=== PATIENT | female | born 1930 | race Caucasian/White ===

== ENCOUNTER 2017-05-14 07:46 | Outpatient (CLI) | payer MEDICARE, BC | END 2017-05-14 07:47 | disposition EMS.NT | LOC: EMS 07:46 | PROVIDERS: ATTEND Surgery | DX: Z03.89 Encounter for observation for other suspected diseases and conditions ruled out (principal); W18.39XA Other fall on same level, initial encounter; Y92.009 Unspecified place in unspecified non-institutional (private) residence as the place of occurrence of the external cause ==

== ENCOUNTER 2017-06-14 08:00 | Outpatient (CLI) | payer MEDICARE, BC ==
[2017-06-14 16:38] LABS: BASOPHILS # (AUTO) 0.1 10^3/uL (0.0-0.1); BASOPHILS % (AUTO) 0.9 %; EOSINOPHILS # (AUTO) 0.3 10^3/uL (0.0-0.7); EOSINOPHILS % (AUTO) 4.9 %; HGB - HEMOGLOBIN 14.4 g/dL (12.0-16.0); LYMPHOCYTES # (AUTO) 2.1 10^3/uL (1.5-3.5); LYMPHOCYTES % (AUTO) 30.6 %; MEAN CORPUSCULAR HEMOGLOBIN 32.1 pg (27.0-31.0); MEAN CORPUSCULAR HGB CONC 33.5 g/dL (32.0-36.0); MEAN CORPUSCULAR VOLUME 95.8 fL (81.0-99.0); MONOCYTES # (AUTO) 0.7 10^3/uL (0.0-1.0); MONOCYTES % (AUTO) 10.4 %; NEUTROPHILS # (AUTO) 3.6 10^3/uL (1.5-6.6); NEUTROPHILS % (AUTO) 53.2 %; NUCLEATED RED BLOOD CELLS AUTO 0.1 /100WBC; RED BLOOD COUNT 4.49 10^6/uL (4.20-5.40); RED CELL DISTRIBUTION WIDTH 13.2 % (12.0-15.0); UNCORRECTED WHITE BLOOD COUNT 6.7 x10^3/uL; WHITE BLOOD COUNT 6.7 x10^3/uL (4.8-10.8)
[2017-06-14 16:57] LABS: ALBUMIN/GLOBULIN RATIO 1.2 (1.0-2.2); BILIRUBIN,TOTAL 0.7 mg/dL (0.2-1.0); BUN - BLOOD UREA NITROGEN 18 mg/dL (6-20); CALCIUM 9.7 mg/dL (8.5-10.3); CARBON DIOXIDE - CO2 26 mmol/L (21-32); CHLORIDE 106 mmol/L (101-111); CHOL/HDL RATIO 2.9 (<4.4); CHOLESTEROL 100 mg/dL; CREATININE 0.8 mg/dL (0.4-1.0); GFR - MDRD 68 (>89); GLUCOSE 103 mg/dL (70-100); HDL CHOLESTEROL 34 mg/dL; LDL/HDL RATIO 1.3 (<4.4); POTASSIUM 4.6 mmol/L (3.5-5.0); SODIUM 138 mmol/L (135-145); TOTAL PROTEIN 7.3 g/dL (6.7-8.2); TRIGLYCERIDES 104 mg/dL; VLDL CHOLESTEROL 21 mg/dL
== END 2017-06-14 08:01 | disposition home or self-care (01) ==
LOC: LAB.R 08:00
PROVIDERS: ATTEND Nurse Practitioner Primary Care
DX: Z79.899 Other long term (current) drug therapy (principal); R73.9 Hyperglycemia, unspecified; I10 Essential (primary) hypertension; E78.2 Mixed hyperlipidemia; I44.7 Left bundle-branch block, unspecified
CPT/HCPCS: 80053; 80061; 84443; 85025

== ENCOUNTER 2018-04-03 12:27 | Emergency (ER) | payer MEDICARE, BC ==
[2018-04-03 12:43] VITALS: BP 130/56
--- NOTE | 2018-04-03 14:05 | XRAY Report ---
Procedure Date: 04/03/2018 Accession Number: [id number] / [id number] Procedure: XR - Toe(s) LT CPT Code: FULL RESULT: EXAM: LEFT THIRD TOE RADIOGRAPHY EXAM DATE: 04/03/2018 01:20 PM. CLINICAL HISTORY: Left 3rd toe pain. COMPARISON: None. TECHNIQUE: 3 views. FINDINGS: Bones: Cortical stepoff and lucency at the distal one-third of the left third proximal phalanx is compatible with a mildly displaced fracture. Patient is osteopenic. Remaining osseous structures are intact. Joints: Moderate first MTP joint space narrowing. No subluxation. Soft Tissues: Moderate left third toe soft tissue swelling noted. No radiopaque foreign bodies are noted. IMPRESSION: 1. Mildly displaced transverse acute fracture in the distal one-third of the left third proximal phalanx. 2. No dislocation. 3. Moderate third toe swelling. RADIA
--- NOTE | 2018-04-03 14:29 | ED Physician Documentation ---
History of Present Illness - Stated complaint Stated Complaint: TOE PX - Chief complaint Chief Complaint: Ext Problem - History obtained from History obtained from: Patient - History of Present Illness Timing: Last night Pain level max: 8 Pain level now: 5 Improved by: rest Worsened by: walking - Additonal information Additional information: 88 year old female with L 3rd toe injury. accidentally kicked a piece of furniture while trying to help her . Review of Systems Neurologic: denies: Focal weakness, Numbness PD PAST MEDICAL HISTORY - Past Medical History Cardiovascular: Hypertension Respiratory: None Endocrine/Autoimmune: None GI: Ulcers : None, Incontinence, Kidney stones HEENT: Macular degeneration, Other Psych: None Musculoskeletal: Osteoarthritis Derm: None - Past Surgical History Past Surgical History: Yes Ortho: Knee replacement /RAMP LEAD: Tubal ligation, Hysterectomy HEENT: Cataracts Derm: Skin cancer surgery - Present Medications Home Medications: Ambulatory Orders Medication Instructions Recorded Confirmed Amlodipine Besylate 2.5 mg pe PO BID 04/18/13 05/26/15 Cholecalciferol (Vitamin D3) 5,000 units PO DAILY 04/18/13 05/26/15 [Vitamin D-3] Estrogens, Conjugated [Premarin] 0.3 04/18/13 05/26/15 Furosemide [Lasix] 20 mg PO DAILY 04/18/13 05/26/15 Glucosamine Sulfate Dipot Chlr 1,500 mg PO DAILY 04/18/13 05/26/15 [Glucosamine] Nadolol [Corgard] 20 mg PO BID 04/18/13 05/26/15 Potassium Chloride [K-Dur] 20 meq PO DAILY 04/18/13 05/26/15 Telmisartan [Micardis] 40 tab PO BID 04/18/13 05/26/15 Vit A,C & E/Lutein/Minerals 1 tab PO DAILY 04/18/13 05/26/15 [Ocuvite Tablet] Meclizine [Antivert] 25 mg PO Q6H PRN #20 tablet 09/13/13 05/26/15 Atorvastatin [Lipitor] 40 mg PO DAILY 05/26/15 05/26/15 Ondansetron Odt [Zofran] 4 mg TL Q6H PRN #10 tablet 05/27/15 oxyCODONE/ACET 5/325 [Percocet 5 1 each PO Q4-6H PRN #20 tablet 05/27/15 mg/325 mg] - Allergies Allergies/Adverse Reactions: Allergies Allergy/AdvReac Type Severity Reaction Status Date / Time Penicillins Allergy Mild Rash Verified 04/03/18 12:43 sulfamethoxazole Allergy Unknown unk Verified 04/03/18 12:43 [From ] trimethoprim [From ] Allergy Unknown unk Verified 04/03/18 12:43 - Social History Does the pt smoke?: No Smoking Status: Never smoker Does the pt drink ETOH?: No Does the pt have substance abuse?: No - POLST Patient has POLST: No PD ED PE NORMAL - Vitals Vital signs reviewed: Yes - General General: Alert and oriented X 3 - Derm Derm: Warm and dry - Extremities Extremities: Other (L 3rd toe - Mild ecchymosis and swelling. Neurovascularly intact. Otherwise normal examination of the foot) - Neuro Neuro: Alert and oriented X 3 Results - Vitals Vitals: Vital Signs - 24 hr 04/03/18 12:38 Temperature 36.4 C L Heart Rate 60 Respiratory 20 Rate Blood Pressure 130/56 L O2 Saturation 95 Oxygen O2 Source Room air - Rads (name of study) L foot xray Radiology: Prelim report reviewed, EMP read contemporaneously, See rad report ( Mildly displaced transverse acute fracture in the distal one-third of the left third proximal phalanx. No dislocation. Moderate third toe swelling. ) PD MEDICAL DECISION MAKING - ED course Complexity details: reviewed results, re-evaluated patient, considered differential, d/w patient ED course: Patient is an 88-year-old female who presents with a left third toe fracture. The toe was mohsen taped and placed in a postoperative shoe. Patient declines any pain meds here for home. No nail injury. No subungual hematoma. Patient counseled regarding signs and symptoms for which I believe and urgent re- evaluation would be necessary. Patient with good understanding of and agreement to plan and is comfortable going home at this time This document was made in part using voice recognition software. While efforts are made to proofread this document, sound alike and grammatical errors may occur. - Sepsis Event Vital Signs: Vital Signs - 24 hr 04/03/18 12:38 Temperature 36.4 C L Heart Rate 60 Respiratory 20 Rate Blood Pressure 130/56 L O2 Saturation 95 Oxygen O2 Source Room air Departure - Departure Disposition: 01 Home, Self Care Clinical Impression: Toe fracture, left Qualifiers: Encounter type: initial encounter Toe: lesser toe Fracture type: closed Phalanx : proximal Fracture alignment: displaced Qualified Code(s): S92.512A - Displaced fracture of proximal phalanx of left lesser toe(s), initial encounter for closed fracture Condition: Good Instructions: ED Fx Toe Closed Follow-Up: Estrella Travis PA-C [Primary Care Provider] - Within 1 week Comments: Return if you worsen. Wear the post op shoe for comfort. May take several weeks to heal. Discharge Date/Time: 04/03/18 15:03
== END 2018-04-03 15:03 | disposition home or self-care (01) ==
LOC: ED 12:27
DX: S92.512A Displaced fracture of proximal phalanx of left lesser toe(s), initial encounter for closed fracture (principal); I10 Essential (primary) hypertension; W22.8XXA Striking against or struck by other objects, initial encounter
CPT/HCPCS: 73660; 99282; 99283

== ENCOUNTER 2018-04-09 12:11 | Outpatient (CLI) | payer MEDICARE, BC ==
[2018-04-09 13:28] LABS: BASOPHILS # (AUTO) 0.1 10^3/uL (0.0-0.1); BASOPHILS % (AUTO) 1.1 %; EOSINOPHILS # (AUTO) 0.2 10^3/uL (0.0-0.7); EOSINOPHILS % (AUTO) 3.1 %; HGB - HEMOGLOBIN 13.4 g/dL (12.0-16.0); LYMPHOCYTES # (AUTO) 1.9 10^3/uL (1.5-3.5); LYMPHOCYTES % (AUTO) 27.2 %; MEAN CORPUSCULAR HEMOGLOBIN 32.7 pg (27.0-31.0); MEAN CORPUSCULAR HGB CONC 34.2 g/dL (32.0-36.0); MEAN CORPUSCULAR VOLUME 95.5 fL (81.0-99.0); MONOCYTES # (AUTO) 0.7 10^3/uL (0.0-1.0); MONOCYTES % (AUTO) 9.5 %; NEUTROPHILS # (AUTO) 4.2 10^3/uL (1.5-6.6); NEUTROPHILS % (AUTO) 59.1 %; PLT - PLATELET COUNT 211 10^3/uL (130-450)
[2018-04-09 13:39] LABS: ALBUMIN 3.9 g/dL (3.2-5.5); ALBUMIN/GLOBULIN RATIO 1.1 (1.0-2.2); BILIRUBIN,TOTAL 1.2 mg/dL (0.2-1.0); CALCIUM 9.8 mg/dL (8.5-10.3); TOTAL PROTEIN 7.3 g/dL (6.7-8.2)
[2018-04-09 13:41] LABS: HB2 TOTAL 14.4 g/dL; HEMOGLOBIN A1C 0.56 g/dL; HEMOGLOBIN A1C % 5.7 % (4.6-6.2)
[2018-04-09 13:58] LABS: THYROID STIMULATING HORMONE 1.2 uIU/mL (0.34-5.60)
[2018-04-09 16:10] LABS: RHEUMATOID FACTOR NEGATIVE (Negative)
[2018-04-11 15:03] LABS: ANA SCREEN NEGATIVE (NEGATIVE)
[2018-04-11 23:06] LABS: ALBUMIN 3.8 g/dL (3.8-4.8); ALPHA 1 GLOBULIN 0.3 g/dL (0.2-0.3); ALPHA 2 GLOBULIN 0.8 g/dL (0.5-0.9); BETA 1 GLOBULIN 0.5 g/dL (0.4-0.6); BETA 2 GLOBULIN 0.5 g/dL (0.2-0.5); GAMMA GLOBULIN 1.2 g/dL (0.8-1.7)
== END 2018-04-09 12:12 | disposition home or self-care (01) ==
LOC: LAB.R 12:11
PROVIDERS: ATTEND Physician Assistant Medical
DX: R20.8 Other disturbances of skin sensation (principal); Z79.899 Other long term (current) drug therapy
CPT/HCPCS: 80053; 81599; 82306; 82607; 83036; 84155; 84165; 84207; 84425; 84443; 85025; 85651; 86038; 86334; 86430

== ENCOUNTER 2018-04-10 08:00 | Outpatient (CLI) | payer MEDICARE, BC | END 2018-04-10 08:01 | disposition home or self-care (01) | LOC: LAB.R 08:00 | PROVIDERS: ATTEND Internal Medicine | DX: R20.8 Other disturbances of skin sensation (principal) | CPT/HCPCS: 81599; 82570; 84156; 84166 ==

== ENCOUNTER 2018-07-06 08:13 | Outpatient (CLI) | payer MEDICARE, BC ==
[2018-07-06 08:24] LABS: BASOPHILS # (AUTO) 0.1 10^3/uL (0.0-0.1); BASOPHILS % (AUTO) 1.1 %; EOSINOPHILS # (AUTO) 0.3 10^3/uL (0.0-0.7); EOSINOPHILS % (AUTO) 4.1 %; HGB - HEMOGLOBIN 13.9 g/dL (12.0-16.0); LYMPHOCYTES # (AUTO) 2.5 10^3/uL (1.5-3.5); LYMPHOCYTES % (AUTO) 31.8 %; MEAN CORPUSCULAR HEMOGLOBIN 32.6 pg (27.0-31.0); MEAN CORPUSCULAR VOLUME 95.8 fL (81.0-99.0); MEAN PLATELET VOLUME 7.9 fL (7.9-10.8); MONOCYTES # (AUTO) 0.7 10^3/uL (0.0-1.0); MONOCYTES % (AUTO) 9.6 %; NEUTROPHILS # (AUTO) 4.2 10^3/uL (1.5-6.6); NEUTROPHILS % (AUTO) 53.4 %; PLT - PLATELET COUNT 210 10^3/uL (130-450); RED BLOOD COUNT 4.28 10^6/uL (4.20-5.40); RED CELL DISTRIBUTION WIDTH 13.1 % (12.0-15.0); WHITE BLOOD COUNT 7.8 x10^3/uL (4.8-10.8)
[2018-07-06 08:41] LABS: CHOL/HDL RATIO 2.6 (<4.4); CHOLESTEROL 103 mg/dL; HDL CHOLESTEROL 40 mg/dL; LDL CHOLESTEROL,CALCULATED 48 mg/dL; LDL/HDL RATIO 1.2 (<4.4); VLDL CHOLESTEROL 15 mg/dL
== END 2018-07-06 08:14 | disposition home or self-care (01) ==
LOC: LAB 08:13
PROVIDERS: ATTEND Physician Assistant Medical
DX: E78.2 Mixed hyperlipidemia (principal); Z79.899 Other long term (current) drug therapy
CPT/HCPCS: 36415; 80061; 83721; 85025

== ENCOUNTER 2018-09-27 09:26 | Outpatient (CLI) | payer MEDICARE, BC ==
--- NOTE | 2018-09-27 14:38 | MRI Report ---
Reason: HAND WEAKNESS Procedure Date: 09/27/2018 Accession Number: [id number] / [id number] Procedure: MRI - Cervical Spine W/O CPT Code: FULL RESULT: EXAM: MRI CERVICAL SPINE WITHOUT CONTRAST EXAM DATE: 09/27/2018 10:00 AM. CLINICAL HISTORY: HAND WEAKNESS. COMPARISONS: MRA brain 09/27/2013. MRI brain 09/13/2013. TECHNIQUE: Multiplanar, multisequence T1-weighted and fluid-sensitive sequences of the cervical spine without contrast. Other: None. FINDINGS: There is motion degradation on the examination. Reversal of the normal cervical lordosis is seen centered over C4. Posterior longitude ligament hypertrophy is seen at C5 and C6. Buckling of ligamentum flavum is seen at C2-C3 and from C5 through T1. Grade 1 anterolisthesis of C7 relative to T1 is noted. Grade 1 retrolisthesis of C3 relative to C4 and C6 relative to C7 is noted. Grade 1 anterolisthesis of C4 relative to C5 is noted. Moderate to severe loss of disk space height is seen from C3 through C5. Severe loss of disk space height is seen at C5 through C7. Anterior disk protrusion osteophyte formation are seen from C3 through T1. Subtle T2 hyperintense signal in the cervical spinal cord at the level of the C5-C6 disk space is not excluded. C2-C3: No posterior disk protrusion. C3-C4: A mild posterior disk protrusion is seen. Disk/osteophyte complex formation is seen involving the posterior lateral margin of the disk bilaterally. Bilateral uncovertebral joint spurring is seen. Severe left foraminal stenosis. Central canal is borderline. C4-C5: A mild posterior disk protrusion is seen. Disk/osteophyte complex formation is seen involving the posterior lateral margin of the disk bilaterally. Central canal is borderline. Bilateral uncovertebral joint spurring results in severe bilateral foraminal stenosis. There is flattening of the ventral cervical spinal cord. C5-C6: A moderate posterior disk protrusion is seen. There is mass-effect on the ventral thecal sac greatest in the midline and to the left of midline. Central canal measures 6 mm. Disk/osteophyte complex formation is seen involving the posterior lateral margin of the disk bilaterally and there is bilateral uncovertebral joint spurring with severe bilateral foraminal stenosis. C6-C7: A mild posterior disk protrusion is seen. Disk/osteophyte complex is seen involving the posterior lateral margin of the disk bilaterally. There is bilateral uncovertebral joint spurring. Severe bilateral foraminal stenosis is seen. Flattening of the ventral cervical spinal cord is seen. Central canal measures 6-7 mm. C7-T1: A very mild posterior disk protrusion is seen. Bilateral foraminal narrowing is present. Central canal is borderline. T1-T2, T2-T3, and T3-T4: Posterior disk protrusions are seen on the sagittal views without central canal stenosis present. Facet hypertrophy is seen predominantly in the mid and upper cervical spine on the left. IMPRESSION: 1. Degenerative disk disease, uncovertebral joint spurring, osteophyte formation, and facet hypertrophy are present at multiple levels and are discussed above. 2. There is moderate central canal stenosis at C5-C6 and at C6-C7. There is significant mass-effect on the ventral cervical spinal cord at these levels. 3. Multilevel severe foraminal stenosis is present. This is seen bilaterally from C4 through C7 and on the left at C3-C4. 4. Suspect subtle cord signal at the level of the C5-C6 disk space suggesting subtle myelomalacia. 5. Multilevel spondylolisthesis is present. RADIA
== END 2018-09-27 09:27 | disposition home or self-care (01) ==
LOC: DI 09:26
PROVIDERS: ATTEND Psychiatry & Neurology Neurology
DX: M50.21 Other cervical disc displacement, high cervical region (principal); M51.24 Other intervertebral disc displacement, thoracic region; M48.02 Spinal stenosis, cervical region; M43.12 Spondylolisthesis, cervical region; M47.9 Spondylosis, unspecified
CPT/HCPCS: 72141

== ENCOUNTER 2019-03-25 12:18 | Outpatient (CLI) | payer MEDICARE, BC ==
--- NOTE | 2019-03-26 00:57 | XRAY Report ---
Reason: WHEEZING Procedure Date: 03/25/2019 Accession Number: [id number] / [id number] Procedure: XR - Chest 2 View X-Ray CPT Code: 51934 FULL RESULT: EXAM: CHEST RADIOGRAPHY EXAM DATE: 03/25/2019 12:50 PM. CLINICAL HISTORY: WHEEZING. Cough. COMPARISON: 04/18/2013 10:20 PM. TECHNIQUE: 2 views. FINDINGS: Lungs/Pleura: Mild bibasilar and right midlung linear opacities, suspect atelectasis, new. No consolidation, pleural effusion or pneumothorax. Mediastinum: Heart and mediastinal contours are unremarkable. Other: Marked aortic arch calcification. Severe bilateral glenohumeral degenerative joint disease, right worse than left. IMPRESSION: Mild bibasilar and right midlung linear opacities, suspect atelectasis, new. No consolidation, pleural effusion or pneumothorax. RADIA
== END 2019-03-25 12:19 | disposition home or self-care (01) ==
LOC: DI 12:18
PROVIDERS: ATTEND Family Medicine
DX: R91.8 Other nonspecific abnormal finding of lung field (principal)
CPT/HCPCS: 71046

== ENCOUNTER 2019-04-05 08:57 | Outpatient (CLI) | payer MEDICARE, BC ==
[2019-04-05 09:17] LABS: BASOPHILS # (AUTO) 0.1 10^3/uL (0.0-0.1); EOSINOPHILS # (AUTO) 0.7 10^3/uL (0.0-0.7); EOSINOPHILS % (AUTO) 7.4 %; HGB - HEMOGLOBIN 14.8 g/dL (12.0-16.0); LYMPHOCYTES # (AUTO) 2.7 10^3/uL (1.5-3.5); LYMPHOCYTES % (AUTO) 30.3 %; MEAN CORPUSCULAR HEMOGLOBIN 32.1 pg (27.0-31.0); MEAN CORPUSCULAR HGB CONC 32.7 g/dL (32.0-36.0); MEAN PLATELET VOLUME 10.1 fL (7.9-10.8); MONOCYTES # (AUTO) 0.9 10^3/uL (0.0-1.0); MONOCYTES % (AUTO) 10.1 %; NEUTROPHILS # (AUTO) 4.5 10^3/uL (1.5-6.6); NEUTROPHILS % (AUTO) 50.7 %; PLT - PLATELET COUNT 241 10^3/uL (130-450); RED BLOOD COUNT 4.61 10^6/uL (4.20-5.40); RED CELL DISTRIBUTION WIDTH 12.6 % (12.0-15.0); WHITE BLOOD COUNT 8.9 x10^3/uL (4.8-10.8)
[2019-04-05 09:22] LABS: CALCIUM 9.8 mg/dL (8.5-10.3); CREATININE 0.9 mg/dL (0.4-1.0)
[2019-04-05 10:45] LABS: THYROID STIMULATING HORMONE 2.43 uIU/mL (0.34-5.60)
[2019-04-05 10:46] LABS: FREE T4 (FREE THYROXINE) 1.13 ng/dL (0.58-1.64)
== END 2019-04-05 08:58 | disposition home or self-care (01) ==
LOC: LAB 08:57
PROVIDERS: ATTEND Family Medicine
DX: I10 Essential (primary) hypertension (principal); J32.9 Chronic sinusitis, unspecified; R06.2 Wheezing
CPT/HCPCS: 36415; 80048; 83880; 84439; 84443; 84481; 85025

== ENCOUNTER 2019-06-14 10:38 | Outpatient (CLI) | payer MEDICARE, BC ==
--- NOTE | 2019-06-15 14:43 | XRAY Report ---
Reason: [id number] Procedure Date: 06/14/2019 Accession Number: [id number] / [id number] Procedure: XR - Shoulder 2 View BILAT CPT Code: Final Report FULL RESULT: EXAM: BILATERAL SHOULDER RADIOGRAPHY EXAM DATE: 06/14/2019 11:06 AM. CLINICAL HISTORY: [id number]. COMPARISON: CHEST 2 VIEW 03/25/2019 12:37 PM. TECHNIQUE: 2 views each bilateral shoulder (4 views total). FINDINGS: Bones: No fractures or bone lesions. Bones appear osteopenic. Joints: There is advanced glenohumeral joint DJD, right greater than left. Soft Tissues: Unremarkable. IMPRESSION: 1. No definite acute osseous abnormality. 2. Advanced glenohumeral joint DJD, right greater than left. RADIA
--- NOTE | 2019-06-15 14:45 | XRAY Report ---
Reason: SPINAL STENOSI,LUMBAR,SHOULDER PX,LT GREAT THAN RT Procedure Date: 06/14/2019 Accession Number: [id number] / [id number] Procedure: XR - Lumbar Spine 2 View CPT Code: Final Report FULL RESULT: EXAM: LUMBOSACRAL SPINE RADIOGRAPHY EXAM DATE: 06/14/2019 11:09 AM. CLINICAL HISTORY: Spinal stenosis, pain COMPARISONS: ABDOMEN/PELVIS W/O 05/26/2015 10:16 PM. TECHNIQUE: 2 views. FINDINGS: Alignment: There is grade 1 anterolisthesis of L3 on L4 and grade 2 anterolisthesis of L4 on L5. There is mild retrolisthesis of L2 on L3. Alignment is similar to prior CT of 2015. Bones: Diffuse osteopenia. No fractures or bone lesions. Postsurgical changes from left hip arthroplasty. Disks: Moderate multilevel degenerative changes are present from L2-S1. Facets: Facet arthropathy throughout the lumbar spine. Sacroiliac Joints: Unremarkable. Soft Tissues: Atherosclerotic vascular calcifications in the aorta. IMPRESSION: Multilevel degenerative changes, with alignment similar to a prior CT of 2014. RADIA
== END 2019-06-14 10:39 | disposition home or self-care (01) ==
LOC: DI 10:38
PROVIDERS: ATTEND Family Medicine
DX: M51.36 Other intervertebral disc degeneration, lumbar region (principal); M51.37 Other intervertebral disc degeneration, lumbosacral region; M47.816 Spondylosis without myelopathy or radiculopathy, lumbar region; M43.16 Spondylolisthesis, lumbar region; M19.011 Primary osteoarthritis, right shoulder; M19.012 Primary osteoarthritis, left shoulder
CPT/HCPCS: 72100

== ENCOUNTER 2019-10-31 09:07 | Outpatient (CLI) | payer MEDICARE, BC ==
[2019-10-31 09:42] LABS: BASOPHILS # (AUTO) 0.1 10^3/uL (0.0-0.1); EOSINOPHILS # (AUTO) 0.4 10^3/uL (0.0-0.7); EOSINOPHILS % (AUTO) 6.3 %; HGB - HEMOGLOBIN 14.8 g/dL (12.0-16.0); LYMPHOCYTES % (AUTO) 28.7 %; MEAN CORPUSCULAR HEMOGLOBIN 32.5 pg (27.0-31.0); MEAN CORPUSCULAR VOLUME 98.5 fL (81.0-99.0); MEAN PLATELET VOLUME 10.3 fL (7.9-10.8); MONOCYTES # (AUTO) 0.8 10^3/uL (0.0-1.0); MONOCYTES % (AUTO) 11.4 %; NEUTROPHILS # (AUTO) 3.7 10^3/uL (1.5-6.6); PLT - PLATELET COUNT 224 10^3/uL (130-450); RED BLOOD COUNT 4.56 10^6/uL (4.20-5.40); RED CELL DISTRIBUTION WIDTH 12.6 % (12.0-15.0)
[2019-10-31 10:02] LABS: ALBUMIN 3.9 g/dL (3.2-5.5); ALBUMIN/GLOBULIN RATIO 1.1 (1.0-2.2); ALKALINE PHOSPHATASE 80 IU/L (42-121); ALT ALANINE AMINOTRANSFERASE 40 IU/L (10-60); AST ASPARTATE AMINOTRANSFERASE 29 IU/L (10-42); BILIRUBIN,TOTAL 0.9 mg/dL (0.2-1.0); BUN - BLOOD UREA NITROGEN 15 mg/dL (6-20); CALCIUM 9.5 mg/dL (8.5-10.3); CARBON DIOXIDE - CO2 25 mmol/L (21-32); CHLORIDE 105 mmol/L (101-111); CHOLESTEROL 96 mg/dL; CREATININE 0.8 mg/dL (0.4-1.0); GFR - MDRD 68 (>89); GLUCOSE 115 mg/dL (70-100); HDL CHOLESTEROL 32 mg/dL; LDL CHOLESTEROL,CALCULATED 43 mg/dL; LDL/HDL RATIO 1.3 (<4.4); SODIUM 136 mmol/L (135-145); TOTAL PROTEIN 7.3 g/dL (6.7-8.2); VLDL CHOLESTEROL 21 mg/dL
[2019-10-31 10:15] LABS: HEMOGLOBIN A1C 0.73 g/dL; HEMOGLOBIN A1C % 6.6 % (4.6-6.2)
== END 2019-10-31 09:08 | disposition home or self-care (01) ==
LOC: LAB 09:07
PROVIDERS: ATTEND Family Medicine
DX: I47.1 Supraventricular tachycardia (principal); R73.02 Impaired glucose tolerance (oral); E78.5 Hyperlipidemia, unspecified; M85.80 Other specified disorders of bone density and structure, unspecified site; M15.9 Polyosteoarthritis, unspecified; I10 Essential (primary) hypertension
CPT/HCPCS: 36415; 80053; 80061; 83036; 83721; 84443; 85025

== ENCOUNTER 2020-01-29 08:00 | Outpatient (CLI) | payer MEDICARE, BC ==
--- NOTE | 2020-01-29 11:52 | XRAY Report ---
Reason: FRACTURE OF SHAFT OF RIGHT FIBULA Procedure Date: 01/29/2020 Accession Number: [id number] / [id number] Procedure: WCP - Tib/Fib RT CPT Code: Final Report FULL RESULT: PROCEDURE: Tib/Fib RT INDICATIONS: FRACTURE OF SHAFT OF RIGHT FIBULA TECHNIQUE: 2 views of the tibia and fibula were acquired. COMPARISON: None. FINDINGS: Bones: No fractures or dislocations. No suspicious bony lesions. Medial unicompartmental arthroplasty. Tibiotalar joint degenerative changes. Dystrophic ossification projecting in the medial soft tissues. Scattered vascular calcifications. IMPRESSION: No fracture. If the patient's pain or other symptoms persist, consider further evaluation with MRI. Reviewed by: Andriy Miguel MD on 01/29/2020 11:51 AM PDT Approved by: Andriy Miguel MD on 01/29/2020 11:51 AM PDT Station ID: [id number]
== END 2020-01-29 23:59 | disposition home or self-care (01) ==
LOC: DI.WCP 08:00
PROVIDERS: ATTEND Family Medicine
DX: S82.401A Unspecified fracture of shaft of right fibula, initial encounter for closed fracture (principal)

== ENCOUNTER 2020-09-30 10:14 | Outpatient (CLI) | payer MEDICARE, BC ==
[2020-09-30 11:11] LABS: ALBUMIN 4.2 g/dL (3.2-5.5); ALBUMIN/GLOBULIN RATIO 1.2 (1.0-2.2); ALKALINE PHOSPHATASE 73 IU/L (42-121); ALT ALANINE AMINOTRANSFERASE 41 IU/L (10-60); AST ASPARTATE AMINOTRANSFERASE 31 IU/L (10-42); BILIRUBIN,TOTAL 0.9 mg/dL (0.2-1.0); BUN - BLOOD UREA NITROGEN 17 mg/dL (6-20); CALCIUM 10.5 mg/dL (8.5-10.3); CARBON DIOXIDE - CO2 24 mmol/L (21-32); CHLORIDE 108 mmol/L (101-111); CHOL/HDL RATIO 3.1 (<4.4); CHOLESTEROL 113 mg/dL; CREATININE 0.9 mg/dL (0.4-1.0); GLUCOSE 101 mg/dL (70-100); HDL CHOLESTEROL 36 mg/dL; LDL CHOLESTEROL,CALCULATED 37 mg/dL; TOTAL PROTEIN 7.7 g/dL (6.7-8.2); VLDL CHOLESTEROL 40 mg/dL
[2020-09-30 11:28] LABS: BASOPHILS # (AUTO) 0.1 10^3/uL (0.0-0.1); BASOPHILS % (AUTO) 0.7 %; EOSINOPHILS # (AUTO) 0.2 10^3/uL (0.0-0.7); EOSINOPHILS % (AUTO) 2.2 %; HGB - HEMOGLOBIN 14.9 g/dL (12.0-16.0); LYMPHOCYTES # (AUTO) 2.4 10^3/uL (1.5-3.5); LYMPHOCYTES % (AUTO) 29.8 %; MEAN CORPUSCULAR HEMOGLOBIN 32.7 pg (27.0-31.0); MEAN CORPUSCULAR HGB CONC 33.2 g/dL (32.0-36.0); MEAN CORPUSCULAR VOLUME 98.7 fL (81.0-99.0); MEAN PLATELET VOLUME 10.6 fL (7.9-10.8); MONOCYTES # (AUTO) 0.9 10^3/uL (0.0-1.0); MONOCYTES % (AUTO) 10.5 %; NEUTROPHILS # (AUTO) 4.5 10^3/uL (1.5-6.6); NEUTROPHILS % (AUTO) 56.4 %; PLT - PLATELET COUNT 214 10^3/uL (130-450); RED BLOOD COUNT 4.55 10^6/uL (4.20-5.40); RED CELL DISTRIBUTION WIDTH 12.4 % (12.0-15.0); WHITE BLOOD COUNT 8.1 x10^3/uL (4.8-10.8)
[2020-09-30 15:28] LABS: HEMOGLOBIN A1c% 6.2 % (4.27-6.07)
== END 2020-09-30 10:15 | disposition home or self-care (01) ==
LOC: LAB 10:14
PROVIDERS: ATTEND Family Medicine
DX: I49.9 Cardiac arrhythmia, unspecified (principal); E66.9 Obesity, unspecified; R73.02 Impaired glucose tolerance (oral); G62.9 Polyneuropathy, unspecified; E78.5 Hyperlipidemia, unspecified; I10 Essential (primary) hypertension
CPT/HCPCS: 36415; 80053; 80061; 83036; 83721; 84443; 85025